=== PATIENT | male | born 1990 | race African-American/Black ===

== ENCOUNTER 2016-10-06 13:16 | Emergency (ER) | payer SELFPAY ==
[~2016-10-06] VITALS: Ht 180.3 cm; Wt 85.0 kg
[~2016-10-06 13:16] MED LIST: IBUP800T23 PO; PENI500T PO; PERI0.126 SWISH-SPIT
[2016-10-06 13:18] VITALS: BP 116/58; PULSE 66; RESP 14; TEMP 97.5; O2SAT 98
--- NOTE | 2016-10-06 14:20 | PD ---
HPI Chief Complaint: Cold / Flu Symptoms Time Seen by Provider: 14:18 Travel History International Travel<30 days: No Contact w/Intl Traveler<30days: No Traveled to known affect area: No History of Present Illness HPI Patient comes in complaining of fever and sinus congestion that began yesterday. Patient states been going on and off since the beginning of the month. Patient states he took [id number] cold and flu medicine yesterday for this that seemed to help some. Patient denies any nausea, vomiting, cough, shortness of breath, abdominal pain, chest pain, diarrhea, or known sick contacts. Patient denies any known fevers today or taking medication today. PFSH Past Medical History Medical History: Denies Significant Hx Social History Alcohol Use: No Tobacco Use: No Substance Use: No Allergies-Medications (Allergen,Severity, Reaction): Coded Allergies: No Known Allergies (Unverified , 10/06/16) Reported Meds & Prescriptions Reported Meds & Active Scripts Active No Active Prescriptions or Reported Medications Review of Systems Except as stated in HPI: all other systems reviewed are Neg Physical Exam Narrative GENERAL: Well-developed, well nourished, in no acute distress, and non-ill appearing. SKIN: Warm and dry. HEAD: Atraumatic. Normocephalic. EYES: Pupils equal and round. EOMI. No scleral icterus. No injection or drainage. ENT: No nasal bleeding or discharge. Mucous membranes pink and moist. Tympanic membranes pearly price bilaterally. Posterior pharynx nonerythematous without exudate. Uvula is midline. No tenderness to facial sinuses to palpation. NECK: Trachea midline. No cervical lymphadenopathy. Supple. No nuclear rigidity. CARDIOVASCULAR: Regular rate and rhythm. No murmur appreciated. RESPIRATORY: No accessory muscle use. No respiratory distress. Clear to auscultation. Breath sounds equal bilaterally. MUSCULOSKELETAL: No obvious deformities. No clubbing. No cyanosis. No edema. Full range of motion. NEUROLOGICAL: Awake and alert. No obvious cranial nerve deficits. Motor grossly within normal limits. Normal speech. PSYCHIATRIC: Appropriate mood and affect; insight and judgment normal. Data Data Last Documented VS Vital Signs Date Time Temp Pulse Resp B/P Pulse Ox O2 Delivery O2 Flow Rate FiO2 10/06/16 13:18 97.5 66 14 116/58 98 Room Air Orders Influenzae A/B Antigen (10/06/16 13:55) MDM Medical Decision Making Medical Screen Exam Complete: Yes Emergency Medical Condition: Yes Differential Diagnosis Influenza, viral syndrome, sinusitis, upper respiratory infection, other Narrative Course Patient in no obvious distress upon re-evaluation. All pertinent laboratory result(s) discussed with patient. Any questions/concerns in reference to patient diagnosis/condition discussed and clarified prior to patient's discharge. Reinforced sheer importance of close follow up with patient's primary physician or primary care clinic. Instructed patient to return to ED immediately, if symptoms return/worsen. Pt showed understanding of above instructions. Further instructions and recommendations were detailed in discharge paperwork. Pt ambulated without difficulty out of ED at discharge. Diagnosis Primary Impression: Viral syndrome Patient Instructions: General Instructions, Viral Syndrome (ED) Additional Instructions: Follow-up with your primary care physician this week for reevaluation. Use over -the-counter cold and flu medication as needed for symptomatic relief. Follow instructions on the packaging. Drink plenty of non-caffeinated and nonalcoholic fluids. Return to the emergency department if symptoms get worse. Scripts No Active Prescriptions or Reported Meds Disposition: 01 DISCHARGE HOME Condition: Stable Hugh Martinez Oct 06, 2016 14:20
== END 2016-10-06 15:22 | disposition home or self-care (01) ==
LOC: NEPB 13:16
DX: B34.9 Viral infection, unspecified (principal)
CPT/HCPCS: 87804; 99283